=== PATIENT | male | born 1995 | race Caucasian/White ===

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

== ENCOUNTER 2018-06-04 02:12 | Emergency (ER) | payer OTHER ==
[~2018-06-04] VITALS: Ht 175.3 cm; Wt 65.0 kg
[~2018-06-04 02:12] MED LIST changes: +ASCO500C43 PO
[2018-06-04 02:19] VITALS: TEMP 36.7; Ht 175.3 cm; Wt 65.0 kg
--- NOTE | 2018-06-04 02:51 | EMERGENCY ROOM VISIT NOTE ---
History First contact with patient: 02:16 Chief Complaint: ALCOHOL OVERDOSE Stated Complaint: ALCOHOL Nursing Triage Summary: Pt arrives via BLS litter from [facility]. EMS reports pt was found by [employer] sitting on a stone wall falling asleep. Pt denies fall/injury/pain or nausea upon arrival. Pt states, "All I had to drink tonight was water." Pt cooperative upon arrival. History of Present Illness The patient is a 22 year old male who presents to the Emergency Room via EMS for evaluation of alcohol intoxication. History is limited secondary to patient 's intoxicated state. Per EMS, the patient was found by police sitting on a stone wall asleep. The patient admits to drinking liquor prior to arrival. He does not know how much he drank. He denies any drug use. He denies any medical problems. He denies any falls or trauma. Review of Systems Review of systems is limited secondary to patient's intoxicated state. Past Medical/Surgical History Medical Problems: (1) No pertinent past medical history Family History Patient reports no known family medical history. Social History Smoking Status: Never Smoker Alcohol Use: heavy Drug Use: none Marital Status: single Housing Status: lives with roommate Occupation Status: [employer] student Current/Historical Medications No Active Prescriptions or Reported Meds Physical Exam Vital Signs Date Time Temp Pulse Resp B/P (MAP) Pulse Ox O2 Delivery O2 Flow Rate FiO2 06/04/18 05:50 75 18 96/50 97 Room Air 06/04/18 04:39 76 06/04/18 03:47 84 18 120/46 97 Room Air 06/04/18 02:28 80 06/04/18 02:19 36.7 97 18 136/77 100 Room Air Physical Exam VITALS: Vitals are noted on the nurse's note and reviewed by myself. Vital signs stable. GENERAL: This is a 22-year-old male, sitting up in bed, appears to be visibly intoxicated, smells of ETOH. SKIN: There is a birthmark to the right cheek. No rashes, ecchymosis or erythema. HEAD: Normocephalic atraumatic. EARS: External auditory canals clear. No hemotympanum. EYES: Pupils equal round and reactive to light and accommodation. NOSE: No deformities noted. MOUTH: No loose or chipped teeth. NECK: No cervical spine tenderness. HEART: Regular rate and rhythm without murmurs gallops or rubs. LUNGS: Clear to auscultation bilaterally without wheezes, rales or rhonchi. ABDOMEN: Soft, nontender. MUSCULOSKELETAL: Full range of motion throughout. Strength intact throughout. NEURO: Patient was alert and oriented to person place and time. Speech slurred. Gross sensation intact. Patient cooperative with examiner. Medical Decision & Procedures Laboratory Results 06/04/18 02:24 Test 06/04/18 02:24 Anion Gap 8.0 mmol/L (3-11) Est Creatinine Clear Calc Drug Dose 108.3 ml/min Estimated GFR () 125.0 Estimated GFR (Non- 107.9 BUN/Creatinine Ratio 10.8 (10-20) Calcium Level 9.1 mg/dl (8.5-10.1) Ethyl Alcohol mg/dL 296.0 mg/dl (0-3) Medical Decision Differential diagnosis includes alcohol intoxication, drug use, infection, hypoglycemia, head trauma, among others. The patient is a 22-year-old male who presents today for evaluation of probable alcohol intoxication. Labs revealed an alcohol of 296. Kidney function was found to be within normal limits. Labs were otherwise unremarkable. There is no evidence of head trauma or infection on exam. The patient was placed on the color television console monitor and placed in the prone position. They were monitored for an appropriate amount of time and when they were more sober, they were reassessed and discharged home with a sober ride. The patient was advised not to drink anymore alcohol today and to follow-up with [facility] for any further concerns. Medication Reconcilliation Current Medication List: was personally reviewed by me Blood Pressure Screening Patient's blood pressure: Normal blood pressure Impression Primary Impression: Alcohol intoxication Departure Information Dispostion Home / Self-Care Condition GOOD Prescriptions No Active Prescriptions or Reported Meds Referrals No Doctor, Assigned (PCP) Patient Instructions My [facility] Additional Instructions You were evaluated in emergency department for intoxication. This is a sign of Alcohol Abuse and should not be taken lightly. You had a blood alcohol level that was significantly elevated. Over the next 24 hours keep well hydrated and eat light meals. Don't drink any more alcohol. This is important. Please discuss this visit with your Primary Care Provider, [facility] and/or your loved ones. Unless an exceptional circumstance, the Hospital DOES NOT contact anyone during your visit, nor is your Protected Medical Information released to anyone without your approval/request. This means we do not contact your Parents, the Police, [facility], etc. However, you will likely receive a bill from the Hospital and/or your Insurance company, which will usually be sent to the Primary Policy [place] (often one's Parents) If your incident was on campus, or if the Police were involved, they will often contact the University to make them aware of what happened. Often this will result in you being required to take Alcohol Education classes (ie BASICS class) . Please see information given to you at discharge regarding contact for this. If the Police were involved you may be cited for public intoxication. Please contact either [facility] Police or the [place] Police for further information. Call 911 or return to Emergency Department if you develop: Passing out, difficulty breathing, many episodes of vomiting, blood in vomit or stool, abdominal pain, fevers, or other severe symptoms. We are always here to help if you feel you need further evaluation or treatment. Problem Qualifiers Primary Impression: Alcohol intoxication Complication of substance-induced condition: uncomplicated Qualified Codes: F10.920 - Alcohol use, unspecified with intoxication, uncomplicated
[2018-06-04 02:58] LABS: CALCIUM 9.1 mg/dl (8.5-10.1)
[2018-06-04 07:17] VITALS: BP 125/72; PULSE 64; O2SAT 95
== END 2018-06-04 07:18 | disposition home or self-care (01) ==
LOC: EDBD 02:12 → C.EDB 02:13
DX: F10.929 Alcohol use, unspecified with intoxication, unspecified (principal); Y90.8 Blood alcohol level of 240 mg/100 ml or more